=== PATIENT | female | born 1965 | race Caucasian/White ===

== ENCOUNTER 2016-06-06 14:53 | Emergency (ER) | payer MEDICAID, OTHER ==
[2016-06-06 15:15] VITALS: BP 137/79
--- NOTE | 2016-06-06 16:18 | UC ---
Respiratory Complaint HPI - HPI Summary HPI Summary: The patient comes in today for: 1. Upper respiratory symptoms (bilateral ear congestion, sinus pressure, fatigue, sore throat, cough) Onset: 2 weeks ago. Palliative/provocative: Nothing makes her symptoms better or worse. Quality: Pressure. Region/radiation: Frontal and maxillary sinus area. Severity: No pain. Time: Constant. Associated symptoms: "It is really aggravating to have my ears stopped up like this." FEvers: None. Cough: Non-productive. Rhinitis: "running a little bit--nothing like it was a few days ago." Strep throat exposure: None. * - History of Current Complaint Chief Complaint: UCEar Stated Complaint: EAR PAIN Time Seen by Provider: 06/06/16 16:11 Hx Obtained From: Patient Hx Last Menstrual Period: 11/24/15 ?: No - Allergies/Home Medications Allergies/Adverse Reactions: Allergies Allergy/AdvReac Type Severity Reaction Status Date / Time No Known Allergies Allergy Verified 11/30/15 17:20 PMH/Surg Hx/FS Hx/Imm Hx Previously Healthy: No Endocrine History Of: Denies: Diabetes, Thyroid Disease, Hyperthyroidism, Hypothyroidism, Dyslipidemia Cardiovascular History Of: Denies: Cardiac Disorders, Hypertension, Pacemaker/ICD, Myocardial Infarction , Congestive Heart Failure, Atrial Fibrillation, Deep Vein Thrombosis, Bleeding Disorders Respiratory History Of: Reports: Asthma Denies: COPD, Bronchitis, Pneumonia, Pulmonary Embolism GI/ History Of: Denies: Gastroesophageal Reflux, Ulcer, Gastrointestinal Bleed, Gall Bladder Disease, Kidney Stones, Diverticulitis, Renal Disease, Urosepsis Neurological History Of: Denies: TIA, CVA, Dementia, Seizures, Migraine Psychological History Of: Denies: Anxiety, Depression, Bipolar Disorder, Schizophrenia, Post Traumatic Stress Disorder Cancer History Of: Denies: Lung Cancer, Colorectal Cancer, Breast Cancer, Prostate Cancer, Cervical Cancer Other History Of: Negative For: HIV, Hepatitis B, Hepatitis C, Anticoagulant Therapy - Surgical History Surgical History: Yes Surgery Procedure, Year, and Place: KNEE SURGERY, TONSILLECTOMY, APPENDECTOMY - Family History Known Family History: Positive: Cardiac Disease, Diabetes, Other - Susceptibility to UTIs (both parents) Negative: Hypertension, Renal Disease - Social History Occupation: Employed Full-time Alcohol Use: Rare Substance Use Type: None Substance Use Comment - Amount & Last Used: "MEDICINAL" Smoking Status (MU): Former Smoker Type: Cigarettes Amount Used/How Often: 5 CIGS/DAY - Immunization History Most Recent Influenza Vaccination: NEVER Most Recent Tetanus Shot: UNSURE Review of Systems Constitutional: Negative Skin: Negative Eyes: Negative ENT: Sore Throat Respiratory: Cough Cardiovascular: Negative Gastrointestinal: Negative Genitourinary: Negative All Other Systems Reviewed And Are Negative: Yes Physical Exam Triage Information Reviewed: Yes Appearance: Well-Appearing, No Pain Distress, Well-Nourished, Ill-Appearing Vital Signs: Initial Vital Signs Temp 97.4 F 06/06/16 15:11 Pulse 72 06/06/16 15:11 Resp 18 06/06/16 15:11 BP 137/79 06/06/16 15:11 Pulse Ox 100 06/06/16 15:11 Vital Signs Reviewed: Yes Eyes: Positive: Conjunctiva Clear. Negative: Discharge ENT: Positive: Hearing grossly normal, Nasal congestion, Other: - Ears: Canal blocked by cerumen bilaterally.. Negative: Pharyngeal erythema - She did not want a strep test., Nasal drainage, Tonsillar swelling, Tonsillar exudate Dental: Negative: Gross Decay/Caries @, Dental Fracture @ Neck: Positive: Supple, Nontender, No Lymphadenopathy. Negative: Nuchal Rigidity Respiratory: Positive: Lungs clear, No respiratory distress, No accessory muscle use. Negative: Rhonchi, Wheezing Cardiovascular: Positive: RRR, No Murmur Abdomen Description: Positive: Nontender, No Organomegaly, Soft. Negative: Distended, Guarding, Peritoneal Signs Bowel Sounds: Positive: Present Musculoskeletal: Positive: Strength Intact, ROM Intact, No Edema Neurological: Positive: Alert, Muscle Tone Normal Psychological: Positive: Age Appropriate Behavior, Consolable Skin: Negative: rashes, breakdown UC Diagnostic Evaluation - Laboratory O2 Sat by Pulse Oximetry: 100 Re-Evaluation - Re-Evaluation First Eval Change: Improved - AFter the irrigation, she states that she feels much better. Respiratory Course/Dx - Course Course Of Treatment: The patient was told of her treatment options. AT this time, she would like to have antibiotic prescription sent in to cover her if she gets worse (purulent rhinitis, cough). She was told that I did not think that antibiotic would be helpful at this time, but if she worsens and developed purulence, she may benefit from it then. - Differential Dx/Diagnosis Differential Diagnosis/HQI/PQRI: Bronchitis, Laryngitis, Sinusitis Provider Diagnoses: Upper respiratory infection. Bilateral cerumen impaction-- removed. Discharge - Discharge Plan Condition: Stable Disposition: HOME Patient Education Materials: Cerumen Impaction (ED), Upper Respiratory Infection (ED) Referrals: Brianna Boles MD [Primary Care Provider] - 1 Week (Please see your primary care provider in a week. If you get worse, please be seen sooner.)
== END 2016-06-06 17:05 | disposition home or self-care (01) ==
LOC: UCEAST 14:53
DX: J06.9 Acute upper respiratory infection, unspecified (principal); H61.23 Impacted cerumen, bilateral; Z87.891 Personal history of nicotine dependence
CPT/HCPCS: 99212; G0463

== ENCOUNTER 2016-12-06 11:20 | Emergency (ER) | payer MEDICAID ==
[2016-12-06 11:35] VITALS: BP 129/71
--- NOTE | 2016-12-06 12:25 | UC ---
Complaint Female HPI - HPI Summary HPI Summary: URINARY FREQUENCY, URGENCY, BURNING WITH URINATION SINCE LAST NIGHT. NO FEVER. NO BACK PAIN. NO ABDOMINAL PAIN. - History Of Current Complaint Chief Complaint: UCGU Stated Complaint: URINARY ISSUE Time Seen by Provider: 12/06/16 11:55 Hx Obtained From: Patient Hx Last Menstrual Period: 3rd week of August Onset/Duration: Gradual Onset, Lasting Hours, Still Present, Worse Since - PROGRESSIVE Timing: Intermittent Severity Initially: Mild Severity Currently: Moderate Pain Intensity: 0 Pain Scale Used: 0-10 Numeric Character: Dull, Burning Aggravating Factor(s): Urination Associated Signs And Symptoms: Negative: Fever, Back Pain, Vaginal Discharge, Nausea, Vomiting(# Of Episodes =) - Risk Factors Ectopic Risk Factor: Negative Ovarian Torsion Risk Factor: Negative - Allergies/Home Medications Allergies/Adverse Reactions: Allergies Allergy/AdvReac Type Severity Reaction Status Date / Time No Known Allergies Allergy Verified 12/06/16 11:35 PMH/Surg Hx/FS Hx/Imm Hx Previously Healthy: Yes Other History Of: Negative For: HIV, Hepatitis B, Hepatitis C, Anticoagulant Therapy - Surgical History Surgical History: Yes Surgery Procedure, Year, and Place: KNEE SURGERY, TONSILLECTOMY, APPENDECTOMY - Family History Known Family History: Positive: Cardiac Disease, Diabetes, Other - Susceptibility to UTIs (both parents) Negative: Hypertension, Renal Disease - Social History Occupation: Employed Full-time Lives: With Family Alcohol Use: Rare Substance Use Type: None Substance Use Comment - Amount & Last Used: "MEDICINAL" Smoking Status (MU): Former Smoker Type: Cigarettes Amount Used/How Often: 5 CIGS/DAY - Immunization History Most Recent Influenza Vaccination: NEVER Most Recent Tetanus Shot: UNSURE Review of Systems Constitutional: Negative Skin: Negative Eyes: Negative ENT: Negative Respiratory: Negative Cardiovascular: Negative Gastrointestinal: Negative Genitourinary: Dysuria, Frequency, Urgency Motor: Negative Neurovascular: Negative Musculoskeletal: Negative Neurological: Negative Psychological: Negative All Other Systems Reviewed And Are Negative: Yes Physical Exam Triage Information Reviewed: Yes Appearance: Well-Appearing, No Pain Distress, Well-Nourished Vital Signs: Initial Vital Signs Temp 98.6 F 12/06/16 11:32 Pulse 59 12/06/16 11:32 Resp 18 12/06/16 11:32 BP 129/71 12/06/16 11:32 Pulse Ox 99 12/06/16 11:32 Vital Signs Reviewed: Yes Eye Exam: Normal ENT Exam: Normal Dental Exam: Normal Neck exam: Normal Neck: Positive: Supple, Nontender, No Lymphadenopathy Respiratory Exam: Normal Respiratory: Positive: Chest non-tender, Lungs clear, Normal breath sounds, No respiratory distress Cardiovascular Exam: Normal Cardiovascular: Positive: RRR, No Murmur Abdominal Exam: Normal Abdomen Description: Positive: Nontender, No Organomegaly. Negative: CVA Tenderness (R), CVA Tenderness (L) Musculoskeletal Exam: Normal Neurological Exam: Normal Psychological Exam: Normal Skin Exam: Normal Complaint Female Dx - Differential Dx/Diagnosis Differential Diagnosis/HQI/PQRI: Urinary Tract Infection Provider Diagnoses: URINARY TRACT INFECTION Discharge - Discharge Plan Condition: Stable Disposition: HOME Prescriptions: Phenazopyridine TAB* [Pyridium 100 mg TAB*] 100 mg PO TID PRN #15 tab PRN Reason: Pain Sulfamethox/Trimethoprim DS* [Bactrim DS 800/160 TAB*] 1 tab PO BID #10 tab Patient Education Materials: Urinary Tract Infection in Women (ED) Referrals: Brianna Boles MD [Primary Care Provider] -
== END 2016-12-06 12:07 | disposition home or self-care (01) ==
LOC: UCEAST 11:20
DX: N39.0 Urinary tract infection, site not specified (principal); B96.89 Other specified bacterial agents as the cause of diseases classified elsewhere; Z87.891 Personal history of nicotine dependence
CPT/HCPCS: 81003; 87077; 87086; 87186; 99212; G0463

== ENCOUNTER 2017-01-13 11:03 | Emergency (ER) | payer OTHER ==
[2017-01-13 11:30] VITALS: BP 133/74
[2017-01-13] MEDS ORDERED: Lidocaine 1% INJ* 10 MG/ML 30 ML SDV INJ ONE (12:17)
[2017-01-13] MEDS ORDERED: Lidocaine 1% MPF* 2 ML VIAL ONE (12:33)
[2017-01-13] MEDS ORDERED: Tetan/Diph/Pertus SYR(Tdap)* 0.5 ML SYR(BOOSTRIX) use SYR IM ONE (12:54)
--- NOTE | 2017-02-13 08:52 | UC ---
Dasha Merchant SooYoung, scribed for Angie Gilbert DO on 01/13/17 at 1151 . Lower Extremity/Ankle HPI - HPI Summary HPI Summary: A 51 y/o F presents to [facility] [place] with c/o LLE calf pain due to sliver onset yesterday. Pt was walking through a brush-area attempting to find a hiking/ walking path, when she got a sliver. She attempted to remove the sliver, but wasn't able to get it out. Rates the pain as 5/10 when she's moving around, and describes it as throbbing. Denies: fever, chills, diaphoresis, CP, SOB, abd pain. Alleviating factors: warm soak. She is unsure of her last tetanus. - History of Current Complaint Chief Complaint: UCLowerExtremity Stated Complaint: SPLINTER IN LEG Hx Obtained From: Patient Hx Last Menstrual Period: 3rd week of August Onset/Duration: Sudden Onset, Lasting Days - onset yesterday, Still Present Severity Initially: Mild Severity Currently: Mild Pain Intensity: 3 - when at rest Pain Scale Used: 0-10 Numeric Aggravating Factor(s): Other - touching it Alleviating Factor(s): Other - warm soak - Allergies/Home Medications Allergies/Adverse Reactions: Allergies Allergy/AdvReac Type Severity Reaction Status Date / Time No Known Allergies Allergy Verified 01/13/17 11:27 PMH/Surg Hx/FS Hx/Imm Hx Previously Healthy: Yes Cardiovascular History: Other Other Cardiovascular History: neg: HTN Respiratory History: Asthma Other History Of: Negative For: HIV, Hepatitis B, Hepatitis C, Anticoagulant Therapy - Surgical History Surgical History: Yes Surgery Procedure, Year, and Place: KNEE SURGERY, TONSILLECTOMY, APPENDECTOMY - Family History Known Family History: Positive: Cardiac Disease, Diabetes, Other - Susceptibility to UTIs (both parents) Negative: Hypertension, Renal Disease - Social History Occupation: Employed Full-time Lives: With Family Alcohol Use: Rare Substance Use Type: None Substance Use Comment - Amount & Last Used: "MEDICINAL" Smoking Status (MU): Light Every Day Tobacco Smoker Type: Cigarettes Amount Used/How Often: 5 CIGS/DAY - Immunization History Most Recent Influenza Vaccination: NEVER Most Recent Tetanus Shot: UNSURE Review of Systems Constitutional: Negative Skin: Other - sliver in L calf Eyes: Negative ENT: Negative Respiratory: Negative Cardiovascular: Negative Gastrointestinal: Negative Genitourinary: Negative Motor: Negative Neurovascular: Negative Musculoskeletal: Negative Neurological: Negative Psychological: Negative All Other Systems Reviewed And Are Negative: Yes Physical Exam Triage Information Reviewed: Yes Appearance: Well-Appearing, No Pain Distress, Well-Nourished Vital Signs: Initial Vital Signs Temp 97.2 F 01/13/17 11:28 Pulse 68 01/13/17 11:28 Resp 14 01/13/17 11:28 BP 133/74 01/13/17 11:28 Pulse Ox 98 01/13/17 11:28 Vital Signs Reviewed: Yes Eyes: Positive: Conjunctiva Clear. Negative: Discharge ENT: Positive: Hearing grossly normal. Negative: Muffled/hoarse voice Neck exam: Normal Neck: Positive: Supple Respiratory: Positive: Lungs clear, Normal breath sounds, No respiratory distress, No accessory muscle use Cardiovascular: Positive: RRR, No Murmur Musculoskeletal Exam: Normal Musculoskeletal: Positive: Strength Intact Neurological: Positive: Alert, Muscle Tone Normal Psychological Exam: Normal Psychological: Positive: Age Appropriate Behavior Skin Exam: Other - warm, dry, nml color Skin: Positive: Other - Raised, tender erythematous patch approx. 10 x 7cm on medial L mid-calf. At center of patch, there is a wound that appears to host an organic FB. Lower Extremity Course/Dx - Course Course Of Treatment: Elevated blood pressure noted. Medications reviewed. The patient has been encouraged to quit smoking. Attempted to remove FB with splinter forceps, a small segment was removed. As I was unsure if FB was left inside the soft tissue, I attempted to flood it out by injecting lidocaine into the splinter site, which did not produce FB. Pt was offered XR and she declined. - Differential Dx/Diagnosis Differential Diagnosis/HQI/PQRI: Foreign Body, Infection Provider Diagnoses: 1. soft tissue fb. 2. wound infection. 3. Elevated blood pressure without diagnosis of hypertension. Discharge - Discharge Plan Condition: Stable Disposition: HOME Prescriptions: Cephalexin CAP* [Keflex CAP*] 500 mg PO BID #20 cap Patient Education Materials: Soft Tissue Foreign Body (ED), Wound Infection (ED ), Diphtheria Tetanus and Pertussis Vaccine (ED) Referrals: Medhat Enciso MD [Medical Doctor] - (follow up in 3-5 days) Brianna Boles MD [Primary Care Provider] - 2 Days Additional Instructions: CEPHALEXIN: The antibiotic you've been prescribed is a member of the cephalosporin class. This type of antibiotic covers a wide variety of infections, including those of the skin, lungs, and urinary tract. It's useful for staph infections. This antibiotic is slightly similar to the penicillin family. In rare cases , a person who is allergic to penicillin will also be allergic to this medication. If you have had a severe allergic reaction to penicillin, and have not taken this antibiotic since that time, notify your doctor. Antibiotics which cover many germs ("broad spectrum" antibiotics) are more likely to cause diarrhea or "yeast" infections. Women prone to vaginal yeast problems may suffer an attack after taking this antibiotic. In infants, oral thrush (white spots "stuck" on the cheek) or yeast diaper rash may result. See your doctor if these problems occur. Call at once if you develop itching, hives , shortness of breath, or lightheadedness. ANYTIME YOU TAKE AN ANTIBIOTIC, IT IS IMPORTANT TO REPLENISH THE BODY'S SUPPLY OF "GOOD BACTERIA." YOU CAN GET GOOD BACTERIA FROM HIGH QUALITY CULTURED FOODS SUCH LOCAL YOGURT, SOUR KRAUT, QUIQUE SHASHANK, NATURALLY FERMENTED PICKLES AND PROBIOTIC DRINKS. YOU CAN ALSO GET GOOD BACTERIA FROM A PROBIOTIC SUPPLEMENT. Your blood pressure was elevated at this visit. That does not mean you have hypertension, it is probably due to your current condition. Please follow up with your primary care provider. Return to Urgent Care if you have any new or worsening symptoms. The documentation as recorded by the Dasha zapata SooYoung accurately reflects the service I personally performed and the decisions made by , Angie Gilbert DO.
== END 2017-01-13 13:13 | disposition home or self-care (01) ==
LOC: UCEAST 11:03
DX: S81.842A Puncture wound with foreign body, left lower leg, initial encounter (principal); L08.9 Local infection of the skin and subcutaneous tissue, unspecified; W45.8XXA Other foreign body or object entering through skin, initial encounter; Y93.01 Activity, walking, marching and hiking; Y92.89 Other specified places as the place of occurrence of the external cause; Z23 Encounter for immunization; R03.0 Elevated blood-pressure reading, without diagnosis of hypertension; F17.210 Nicotine dependence, cigarettes, uncomplicated
CPT/HCPCS: 90471; 90715; 99212; G0463; J2001

== ENCOUNTER → 2017-01-14 11:52 | Emergency (ER) | payer OTHER ==
[~2017-01-14 11:52] MED LIST: Lidocaine 2% EPI 1:200000 MPF* 20 ML VIAL ONE; Silver Nitrate/Potassium Nitr* 1 EA STICK ONE; ceFAZolin 1 GM VIAL(*) 1 GM in NS 0.9% 50 ML* 50 ML IVPB ONE
[2017-01-14 11:59] VITALS: BP 119/76
[2017-01-14 13:08] LABS: Add Diff/Slide Review? Slide Review Added; Comments Flag Yes; Hematocrit 43 % (35-47); Hemoglobin 14.6 g/dl (12.0-16.0); Mean Corpuscular HGB Conc 34 g/dl (31-36); Mean Corpuscular Hemoglobin 29 pg (27-31); Mean Corpuscular Volume 85 fL (80-97); Red Blood Count 5.09 10^6/ul (4.0-5.4); Red Cell Distribution Width 14 % (10.5-15); White Blood Count 11.5 10^3/ul (3.5-10.8)
[2017-01-14 13:20] LABS: Albumin 4.6 g/dL (3.2-5.2); BUN/Creatinine Ratio 14.5 (8-20); C Reactive Protein 11.92 mg/L (< 5.00); Calcium 9.8 mg/dL (8.6-10.3); EGFR African American 115.8 (>60); EGFR Non-African American 90.1 (>60); Globulin 3.8 g/dL (2-4); Total Bilirubin 0.5 mg/dL (0.2-1.0); Total Protein 8.4 g/dL (6.4-8.9)
--- NOTE | 2017-01-14 13:25 | RAD ---
INDICATION: Left leg pain . Infection COMPARISON: None TECHNIQUE: AP, lateral, and oblique views were obtained. FINDINGS: The bony structures, joint spaces, and soft tissues are normal for age. IMPRESSION: NEGATIVE EXAMINATION.
[2017-01-14 13:34] LABS: Mean Platelet Volume 9 um3 (7.4-10.4)
[2017-01-14 13:49] LABS: Potassium 3.9 mmol/L (3.5-5.0)
--- NOTE | 2017-01-14 14:34 | RAD ---
Indication: Foreign body in the left lower extremity. Real-time sonography of the left calf was performed. There is a linear slightly echogenic foreign body along the tract of the palpable area in the medial calf measuring approximately 10 mm. This likely represents a foreign body. IMPRESSION: Foreign body is identified 8 mm deep to the skin entry point measuring approximately 10 mm.
--- NOTE | 2017-01-17 09:12 | CONS ---
CC: [facility]; Dr. Brianna Boles* PROCEDURE NOTE/CONSULTATION REPORT: DATE OF PROCEDURE: 01/14/17. LOCATION: In the emergency room. HISTORY OF PRESENT ILLNESS: I was contacted by the emergency room staff to evaluate Ms. Rodriguez a 51-year-old woman who suffered a puncture wound to the left lower leg and concern for foreign body. She presented to [facility], was started on Keflex, but only got 1 or 2 doses when she showed worsening signs of pain and redness around the site of the puncture. She presented to the emergency room, where a workup here included soft tissue ultrasound, which showed a 1-cm foreign body deep to the skin. I have reviewed the ultrasound and reviewed the chart and I recommended the removal of foreign body that appeared to be vegetative matter. The patient's medical history, surgical history was reviewed along with her medication. She is on no blood thinners. PHYSICAL EXAM: She is afebrile. Normotensive. White count of 11.5. On focused physical exam of the left lower leg, patient had a puncture site at the anterior jimenez with cellulitis that was blanching, tenderness extended superiorly. There is scant serous drainage from site. No fluctuance. Rest of the lower extremities was within normal limits with palpable pulses. IMPRESSION: Foreign body and cellulitis with possible abscess. RECOMMENDATIONS: Incision and drainage, removal of foreign body. I outlined the details of the procedure going over the risks, benefits and alternatives with Ms. Rodriguez. We talked about possible complications which include, but not limited to slow healing, need for additional procedures, possible retained foreign body despite removal and even the possibility of not finding the object at all. The patient signed consent. The area was prepped sterilely with Betadine. We injected the lidocaine along the proposed incision. A 1.5 cm longitudinal incision was made over the left jimenez. This was deepened down through loosely adhered tissue and 2 pieces of straw like material were removed. This appeared to be hay, as patient states it occurred when she was runting through a hayfield. They were both approximately 1 cm in size with less than 1 mm in thickness. The wound was then irrigated. I did not reapproximate it secondary to the cellulitis and it was packed with quarter inch plain packing followed by 4x4s and gauze. Patient tolerated the procedure well. PLAN: Discharged home. She can remove the packing tomorrow and she can continue with the Neosporin at the site and I have asked her to contact our office in 2 weeks if this has not completely healed. She will continue Keflex and the case was discussed with the ER physician. [id number]/CPS #: [id number] MTDD
--- NOTE | 2017-01-30 14:51 | ED ---
Aruna Merchant Thomas, scribed for Kaitlin Akhtar MD on 01/14/17 at 1214 . Lower Extremity - HPI Summary HPI Summary: The pt is a 51 y/o F presenting to the ED with an erythematous region to the medial jimenez of her RLE s/p an injury that occurred two days ago. The patient says that she was impaled by a stick when walking. She presented to [facility] the day of the injury, where she was given Cephalexin. At [facility], a cocopah was drawn around the erythematous region and she was told to go to the emergency room if it grew any larger. The pain is rated 5/10. The pain is aggravated and alleviated by nothing. 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 Pt additionally c/o fatigue, weakness, and SOB (secondary to weakness). Pt denies fevers, N/V, CP. She is a current smoker. She does not take any daily medications. - History of Current Complaint Chief Complaint: EDExtremityLower Stated Complaint: LT LEG POSS INFECTION Time Seen by Provider: 01/14/17 12:00 Hx Obtained From: Patient Hx Last Menstrual Period: 3rd week of August Onset of Pain: Days - two days ago Onset/Duration: Still Present Severity Currently: Moderate Pain Intensity: 5 Pain Scale Used: 0-10 Numeric Timing: Constant Location: Is Discrete @ - medial jimenez of RLE Associated Signs And Symptoms: Positive: Weakness, Other - Fatigue, SOB secondary to weakness; NEG: fever, N/V, CP. Negative: Fever Aggravating Factor(s): Nothing Alleviating Factor(s): Nothing - Allergies/Home Medications Allergies/Adverse Reactions: Allergies Allergy/AdvReac Type Severity Reaction Status Date / Time No Known Allergies Allergy Verified 01/13/17 11:27 PMH/Surg Hx/FS Hx/Imm Hx Previously Healthy: No Endocrine/Hematology History: Denies: Hx Anticoagulant Therapy, Hx Diabetes, Hx Thyroid Disease Cardiovascular History: Denies: Hx Congestive Heart Failure, Hx Deep Vein Thrombosis, Hx Hypertension , Hx Myocardial Infarction, Hx Pacemaker/ICD Respiratory History: Reports: Hx Asthma Denies: Hx Chronic Obstructive Pulmonary Disease (COPD), Hx Lung Cancer, Hx Pneumonia, Hx Pulmonary Embolism GI History: Denies: Hx Gall Bladder Disease, Hx Gastrointestinal Bleed, Hx Ulcer, Hx Urosepsis History: Denies: Hx Kidney Stones, Hx Renal Disease Neurological History: Denies: Hx Dementia, Hx Migraine, Hx Seizures, Hx Transient Ischemic Attacks (TIA) Psychiatric History: Denies: Hx Anxiety, Hx Depression, Hx Schizophrenia, Hx Bipolar Disorder - Surgical History Surgery Procedure, Year, and Place: KNEE SURGERY, TONSILLECTOMY, APPENDECTOMY Infectious Disease History: No Infectious Disease History: Denies: Hx Clostridium Difficile, Hx Hepatitis, Hx Human Immunodeficiency Virus (HIV), Hx of Known/Suspected MRSA, Hx Shingles, Hx Tuberculosis, Hx Known/ Suspected VRE, Hx Known/Suspected VRSA, History Other Infectious Disease, Traveled Outside the [place] in Last 30 Days - Family History Known Family History: Positive: Cardiac Disease, Diabetes, Other - Susceptibility to UTIs (both parents) Negative: Hypertension, Renal Disease - Social History Occupation: Employed Full-time - as a teacher Lives: Alone Alcohol Use: Rare Substance Use Type: Reports: None Substance Use Comment - Amount & Last Used: "MEDICINAL" Smoking Status (MU): Light Every Day Tobacco Smoker Type: Cigarettes Amount Used/How Often: 5 CIGS/DAY Review of Systems Positive: Fatigue. Negative: Fever Negative: Chest Pain Positive: Shortness Of Breath - secondary to fatigue Negative: Vomiting, Nausea Positive: Other - Erythema to medial jimenez of RLE Positive: Weakness All Other Systems Reviewed And Are Negative: Yes Physical Exam Triage Information Reviewed: Yes Vital Signs On Initial Exam: Initial Vitals Temp Pulse Resp BP Pulse Ox 97.6 F 64 18 119/76 98 01/14/17 11:55 01/14/17 11:55 01/14/17 11:55 01/14/17 11:55 01/14/17 11:55 Vital Signs Reviewed: Yes Appearance: Positive: Well-Appearing, No Pain Distress Skin: Positive: Warm, Skin Color Reflects Adequate Perfusion, Dry, Other - On her left leg, there is an area of induration that is 2cm in circumference. There is an abrasion at the center of this area. There is erythema 6cm in circumefere there as well. Some is streaking down her leg. Eyes: Positive: EOMI, JUANJO ENT: Positive: Pharynx normal, TMs normal Neck: Positive: Supple, Nontender Respiratory/Lung Sounds: Positive: Clear to Auscultation, Breath Sounds Present. Negative: Rales, Rhonchi, Wheezes Cardiovascular: Positive: RRR, Other - No gallop. Negative: Murmur, Rub Abdomen Description: Positive: Nontender, Soft Bowel Sounds: Positive: Present Musculoskeletal: Positive: Strength/ROM Intact. Negative: Edema Left, Edema Right Neurological: Positive: Sensory/Motor Intact, Alert, Oriented to Person Place, Time, CN Intact II-III Psychiatric: Positive: Affect/Mood Appropriate Diagnostics - Vital Signs Vital Signs Temp Pulse Resp BP Pulse Ox 01/14/17 11:55 97.6 F 64 18 119/76 98 - Laboratory Result Diagrams: 01/14/17 12:45 01/14/17 12:45 Lab Statement: Any lab studies that have been ordered have been reviewed, and results considered in the medical decision making process. - Radiology XR Lower Leg Xray Interpretation: No Acute Changes - NEGATIVE EXAMINATION. ED physician has reviewed this report and agrees. Radiology Interpretation Completed By: Radiologist - Additional Comments Diagnostic Additional Comments: US Soft Tissue. Interpreted by Radiologist. Impression: Foreign body is identified 8 mm deep to the skin entry point measuring approximately 10 mm. ED physician has reviewed this report and agrees. Lower Extremity Course/Dx - Diagnoses Provider Diagnoses: Cellulitis, Foreign body - Physician Notifications Discussed Care Of Patient With: Adeel Schwartz Time Discussed With Above Provider: 14:48 Instructed by Provider To: Other - I consulted with Dr. Schwartz, surgery, regarding patient care. He came to the ED to evaluate the patient. Discharge - Discharge Plan Condition: Stable Disposition: HOME Patient Education Materials: Cellulitis (ED), Soft Tissue Foreign Body (ED) Referrals: Adeel Schwartz MD [Medical Doctor] - (Follow up with surgery in two weeks. ) Additional Instructions: Continue to put Neosporin on the area. Pull the packing out tomorrow. Follow up with surgery in two weeks. Return to the emergency room for any new or worsening symptoms. The documentation as recorded by the Aruna zapata Thomas accurately reflects the service I personally performed and the decisions made by me, Kaitlin Akhtar MD.
== END | disposition home or self-care (01) ==
LOC: ED 11:52
DX: S81.842A Puncture wound with foreign body, left lower leg, initial encounter (principal); L03.116 Cellulitis of left lower limb; W26.8XXA Contact with other sharp object(s), not elsewhere classified, initial encounter; Y93.01 Activity, walking, marching and hiking; Y92.9 Unspecified place or not applicable; R53.83 Other fatigue; R06.02 Shortness of breath; R53.1 Weakness; J45.909 Unspecified asthma, uncomplicated; F17.210 Nicotine dependence, cigarettes, uncomplicated
CPT/HCPCS: 10120; 36415; 80053; 85025; 86140; 99284; A9270-GY; J0690

== ENCOUNTER 2017-05-27 14:33 | Emergency (ER) | payer SELFPAY ==
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
--- NOTE | 2017-05-27 16:49 | RAD ---
INDICATION: Head injury. COMPARISON: There are no prior studies available for comparison. TECHNIQUE: Contiguous axial sections of the brain were obtained from the skull base to the vertex without contrast. FINDINGS: The ventricles, cisterns and sulci are within normal limits. No significant focal abnormality or mass effect is seen. There is no evidence for hemorrhage. No significant focal osseous abnormality is seen. The visualized portion of the paranasal sinuses and mastoid air cells appear clear. IMPRESSION: NO EVIDENCE FOR ACUTE INTRACRANIAL ABNORMALITY.
--- NOTE | 2017-05-27 16:56 | RAD ---
INDICATION: Trauma, neck pain. COMPARISON: Comparison is made with a prior x-ray study of the cervical spine from November 09, 2011. TECHNIQUE: Contiguous axial sections were obtained from the skull base through the T3 vertebra. Images were reconstructed in the sagittal and coronal planes. FINDINGS: There is straightening of the cervical spine with loss of the normal cervical lordosis. No prevertebral soft tissue swelling or fracture is seen. At the C4-C5 level there is mild posterior uncinate process spurring. No significant spinal canal narrowing is present. There is mild bilateral neural foraminal narrowing. At the C5-C6 level there is moderate posterior uncinate process spurring. There is mild to moderate spinal canal narrowing and mild to moderate bilateral neural foraminal narrowing. At the C6-C7 level there is no spinal canal or neural foraminal narrowing present. IMPRESSION: 1. STRAIGHTENING OF THE CERVICAL SPINE, NO EVIDENCE FOR FRACTURE OR SUBLUXATION. 2. MILD TO MODERATE CERVICAL SPONDYLOSIS.
--- NOTE | 2017-05-27 17:07 | RAD ---
INDICATION: Sacrococcygeal injury. COMPARISON: There are no prior studies available for comparison. TECHNIQUE: 3 views of the sacrococcygeal spine were obtained. FINDINGS: No fracture is seen. There is sclerotic change around both sacroiliac joints left greater than right suggestive of bilateral sacroiliitis. IMPRESSION: NO EVIDENCE OF FRACTURE IF THE PATIENT'S SYMPTOMS PERSIST RECOMMEND FOLLOW UP IMAGING.
[2017-05-27] MEDS ORDERED: Acetaminophen TAB* 325 MG PO ONE (17:26)
[2017-05-27 17:58] VITALS: BP 129/72
== END 2017-05-27 17:56 | disposition home or self-care (01) ==
LOC: ED 14:33
DX: S06.0X0A Concussion without loss of consciousness, initial encounter (principal); S16.1XXA Strain of muscle, fascia and tendon at neck level, initial encounter; S30.0XXA Contusion of lower back and pelvis, initial encounter; V49.88XA Car occupant (driver) (passenger) injured in other specified transport accidents, initial encounter; Y92.410 Unspecified street and highway as the place of occurrence of the external cause; M47.812 Spondylosis without myelopathy or radiculopathy, cervical region; Z87.891 Personal history of nicotine dependence
CPT/HCPCS: 70450; 72125; 72220; 99282

== ENCOUNTER 2018-08-03 09:16 | Emergency (ER) | payer OTHER ==
[2018-08-03 09:25] VITALS: BP 114/56
--- NOTE | 2018-08-03 10:46 | UC ---
Complaint Female HPI - HPI Summary HPI Summary: 53 y/o female presents to the urgent care c/o uti sx since yesterday. Pt reports frequency and mild burning on urination. Pt has had Hx of UTI in the past. Pain w/ urination is 2/10. she ahs taken Advil PO to alleviate symptoms. Pt denies vaginal discharge, pelvic pain, lower back pain, flank pain, fever, abdominal pain, N/V/D. She ahs been drinking a lot of water today. - History Of Current Complaint Chief Complaint: UCGU Stated Complaint: URINARY ISSUE Time Seen by Provider: 08/03/18 10:27 Hx Obtained From: Patient Hx Last Menstrual Period: 09/08 ?: No - Postmenopausal Onset/Duration: Gradual Onset, Lasting Days - 2 days, Still Present Timing: Intermittent, Lasting Seconds Severity Initially: Mild Severity Currently: Mild Pain Intensity: 2 Pain Scale Used: 0-10 Numeric Character: Burning Aggravating Factor(s): Urination Alleviating Factor(s): Nothing Associated Signs And Symptoms: Positive: Negative. Negative: Fever, Back Pain, Vaginal Bleeding/Discharge, Vaginal Discharge, Nausea, Genital Swelling - Risk Factors Ectopic Risk Factor: Negative Ovarian Torsion Risk Factor: Negative - Allergies/Home Medications Allergies/Adverse Reactions: Allergies Allergy/AdvReac Type Severity Reaction Status Date / Time No Known Allergies Allergy Verified 08/03/18 09:25 Home Medications: Home Medications Cetirizine* [ZyrTEC 10 MG TAB*] 10 mg PO DAILY 08/03/18 [History Confirmed 08/03] PMH/Surg Hx/FS Hx/Imm Hx Previously Healthy: Yes Respiratory History: Asthma Other History Of: Negative For: HIV, Hepatitis B, Hepatitis C, Anticoagulant Therapy - Surgical History Surgical History: Yes Surgery Procedure, Year, and Place: KNEE SURGERY, TONSILLECTOMY, APPENDECTOMY - Family History Known Family History: Positive: Cardiac Disease, Diabetes, Other - Susceptibility to UTIs (both parents) Negative: Hypertension, Renal Disease - Social History Occupation: Employed Full-time Lives: With Family Alcohol Use: None Substance Use Type: None Substance Use Comment - Amount & Last Used: "MEDICINAL" Smoking Status (MU): Former Smoker Type: Cigarettes Amount Used/How Often: 5 CIGS/DAY Have You Smoked in the Last Year: Yes - Immunization History Most Recent Influenza Vaccination: NEVER Most Recent Tetanus Shot: UNSURE Review of Systems All Other Systems Reviewed And Are Negative: Yes Constitutional: Positive: Negative Skin: Positive: Negative Eyes: Positive: Negative ENT: Positive: Negative Respiratory: Positive: Negative Cardiovascular: Positive: Negative Gastrointestinal: Positive: Negative Genitourinary: Positive: Dysuria, Frequency, Urgency Motor: Positive: Negative Neurovascular: Positive: Negative Musculoskeletal: Positive: Negative Neurological: Positive: Negative Psychological: Positive: Negative Is Patient Immunocompromised?: No Physical Exam - Summary Physical Exam Summary: VITAL SIGNS: Reviewed. GENERAL: Patient is a well developed and nourished female who is sitting comfortable in the examining table. Patient is not in any acute respiratory distress. HEAD AND FACE: No signs of trauma. No ecchymosis, hematomas or skull depressions. No sinus tenderness. EYES: PERRLA, EOMI x 2, No injected conjunctiva, clear watery eyes, no nystagmus. No photophobia. EARS: Hearing grossly intact. Ear canals and tympanic membranes are within normal limits. MOUTH: pharynx with no erythema, no exudates,no palatal petechiae. no B/L tonsillar enlargement Uvula in midline. NECK: Supple, trachea is midline, no lymphadenopathy, no JVD, no carotid bruit, no c-spine tenderness, neck with full ROM. CHEST: Symmetric, no tenderness at palpation LUNGS: Clear to auscultation bilaterally. No wheezing or crackles. CVS: Regular rate and rhythm, S1 and S2 present, no murmurs or gallops appreciated. ABDOMEN: Soft, non-tender. No signs of distention. No rebound no guarding, and no masses palpated. Bowel sounds are normal. BACK:no scoliosis or lesions, non tender to palpation, No B/L CVA tenderness EXTREMITIES: FROM in all major joints, no edema, no cyanosis or clubbing. NEURO: Alert and oriented x 3. No acute neurological deficits. Speech is normal and follows commands. SKIN: Dry and warm Triage Information Reviewed: Yes Vital Signs: Initial Vital Signs Temp 98 F 08/03/18 09:21 Pulse 67 08/03/18 09:21 Resp 16 08/03/18 09:21 BP 114/56 08/03/18 09:21 Pulse Ox 100 08/03/18 09:21 Complaint Female Dx - Course Course Of Treatment: 53 y/o female presents to the urgent care c/o uti sx since yesterday. Pt reports frequency and mild burning on urination. Pt has had Hx of UTI in the past. Pain w/ urination is 3/10. she ahs taken Advil PO to alleviate symptoms. Pt denies vaginal discharge, pelvic pain, lower back pain, flank pain, fever, abdominal pain, N/V/D. She ahs been drinking a lot of water today. Hx obtained. PE:WNL.UA results: negative. Pt denies vaginal discharge and declines Pelvic exam. Pt will be treated for Dysuria w/ Pyridium 100mg PO TID x 2 days. Advised to increase fluid intake. Urine sent for culture if any abnormality Pt will be notified for further treatment. Pt advised If symptoms do not improve to return to the urgent care or f/u with PCP. Pt understood and agreed. Left the clinic ambulating. - Differential Dx/Diagnosis Differential Diagnosis/HQI/PQRI: Cervicitis, Pelvic Inflammatory Disease, Renal Colic, Sexually Transmitted Disease, Ureteral Stone, Urinary Tract Infection Provider Diagnosis: Dysuria Discharge - Sign-Out/Discharge Documenting (check all that apply): Patient Departure - d/c home All imaging exams completed and their final reports reviewed: No Studies - Discharge Plan Condition: Stable Disposition: HOME Prescriptions: Phenazopyridine TAB* [Pyridium 100 mg TAB*] 100 mg PO TID #6 tab Patient Education Materials: Dysuria (ED) Referrals: Brianna Boles MD [Primary Care Provider] - 2 Days Additional Instructions: 1- Please Pyridium 100 mg PO TID x 2 days to alleviate urinary symptoms. Increase increase fluid intake. drink cranberry juice. 2-If symptoms do not improve please return to the urgent care or your PCP in 2- 3 days. - Billing Disposition and Condition Condition: STABLE Disposition: Home
== END 2018-08-03 10:58 | disposition home or self-care (01) ==
LOC: UCEAST 09:16
DX: R30.0 Dysuria (principal); R35.0 Frequency of micturition; Z87.440 Personal history of urinary (tract) infections; J45.909 Unspecified asthma, uncomplicated; Z87.891 Personal history of nicotine dependence
CPT/HCPCS: 81003; 99212; G0463

== ENCOUNTER 2019-01-26 10:31 | Emergency (ER) | payer OTHER ==
[2019-01-26 10:56] VITALS: BP 130/73
--- NOTE | 2019-01-26 11:24 | UC ---
Throat Pain/Nasal Roland HPI - HPI Summary HPI Summary: She's had a sore throat for about 24 hours. Her son was diagnosed by RST swab with strep pharyngitis a few days ago. He is being treated with antibiotics and is improving. She denies fever or chills or systemic symptoms. She does have some congestion. She attributes this to allergies this time a year. - History of Current Complaint Chief Complaint: UCRespiratory Stated Complaint: SORE THROAT Time Seen by Provider: 01/26/19 11:06 Hx Obtained From: Patient Hx Last Menstrual Period: 09/08 Onset/Duration: Sudden Onset Severity: Moderate Pain Intensity: 3 Cough: Nonproductive Associated Signs & Symptoms: Positive: Negative - Allergies/Home Medications Allergies/Adverse Reactions: Allergies Allergy/AdvReac Type Severity Reaction Status Date / Time No Known Allergies Allergy Verified 01/26/19 10:55 Home Medications: Home Medications Ibuprofen TAB* [Advil TAB*] 200 mg PO Q6H PRN 01/26/19 [History Confirmed ] PMH/Surg Hx/FS Hx/Imm Hx Previously Healthy: Yes Other History Of: Negative For: HIV, Hepatitis B, Hepatitis C, Anticoagulant Therapy - Surgical History Surgical History: Yes Surgery Procedure, Year, and Place: KNEE SURGERY, TONSILLECTOMY, APPENDECTOMY - Family History Known Family History: Positive: Cardiac Disease, Diabetes, Other - Susceptibility to UTIs (both parents) Negative: Hypertension, Renal Disease - Social History Alcohol Use: Rare Substance Use Type: None Substance Use Comment - Amount & Last Used: "MEDICINAL" Smoking Status (MU): Former Smoker Type: Cigarettes Amount Used/How Often: 5 CIGS/DAY Have You Smoked in the Last Year: Yes When Did the Patient Quit Smoking/Using Tobacco: 3 months - Immunization History Most Recent Influenza Vaccination: NEVER Most Recent Tetanus Shot: UNSURE Review of Systems All Other Systems Reviewed And Are Negative: Yes Constitutional: Positive: Negative ENT: Positive: Sore Throat, Sinus Congestion Respiratory: Positive: Negative Cardiovascular: Positive: Negative Gastrointestinal: Positive: Negative Physical Exam - Summary Physical Exam Summary: She is nontoxic in appearance with stable vital signs. Triage Information Reviewed: Yes Appearance: Well-Appearing Vital Signs: Initial Vital Signs Temp 97.9 F 01/26/19 10:49 Pulse 67 01/26/19 10:49 Resp 16 01/26/19 10:49 BP 130/73 01/26/19 10:49 Pulse Ox 98 01/26/19 10:49 Vital Signs Reviewed: Yes ENT: Positive: Pharyngeal erythema, TMs normal Neck: Positive: Supple, Enlarged Nodes @ - Mild anterior cervical lymphadenopathy Respiratory: Positive: Lungs clear, Normal breath sounds, No respiratory distress, No accessory muscle use Cardiovascular Exam: Normal Cardiovascular: Positive: RRR, No Murmur Abdominal Exam: Normal Throat Pain/Nasal Course/Dx - Course Course Of Treatment: Given that her son was just diagnosed by swab with strep throat and is getting better with antibiotics I'm going to treat her the same. - Differential Dx/Diagnosis Provider Diagnosis: Pharyngitis Discharge ED - Sign-Out/Discharge Documenting (check all that apply): Patient Departure All imaging exams completed and their final reports reviewed: No Studies - Discharge Plan Condition: Stable Disposition: HOME Patient Education Materials: Pharyngitis (ED) Referrals: Brianna Boles MD [Primary Care Provider] - - Billing Disposition and Condition Condition: STABLE Disposition: Home
== END 2019-01-26 11:25 | disposition home or self-care (01) ==
LOC: UCEAST 10:31
DX: J02.9 Acute pharyngitis, unspecified (principal); R09.81 Nasal congestion; R59.0 Localized enlarged lymph nodes; Z87.891 Personal history of nicotine dependence
CPT/HCPCS: 87651; 99212; G0463